=== PATIENT | male | born 1980 | race Caucasian/White ===

== ENCOUNTER 2022-05-09 10:57 | Day surgery (SDC) | payer OTHER ==
[~2022-05-09] VITALS: Ht 165.1 cm; Wt 99.3 kg
[2022-05-09] MEDS ORDERED: diphenhydrAMINE 50 MG/ML VIAL ONE (12:48)
[2022-05-09] MEDS ORDERED: LIDOCAINE 2% 100 MG/5 ML UJET TP ONE (12:49)
[2022-05-09] MEDS ORDERED: fentaNYL citrate 0.05 MG/ML VIAL ONE (12:49)
[2022-05-09] MEDS ORDERED: MIDAZOLAM 5 MG/5 ML VIAL ONE (12:49)
[2022-05-09] MEDS ORDERED: MIDAZOLAM 5 MG/5 ML VIAL IV ONE (13:35)
[2022-05-09] MEDS ORDERED: diphenhydrAMINE 50 MG/ML VIAL IVP ONE (13:35)
[2022-05-09] MEDS ORDERED: fentaNYL citrate 0.05 MG/ML VIAL IVP ONE (13:35)
== END 2022-05-09 13:50 | disposition home or self-care (01) ==
LOC: MMU 10:57 → MDS 10:57
PROVIDERS: ATTEND Internal Medicine Gastroenterology
DX: K62.5 Hemorrhage of anus and rectum (principal); K51.90 Ulcerative colitis, unspecified, without complications; K62.89 Other specified diseases of anus and rectum; Z86.010 Personal history of colon polyps
CPT/HCPCS: 45380; J1200; J2250; J3010